=== PATIENT | male | born 1980 | race Caucasian/White ===

== ENCOUNTER 2019-01-01 23:05 | Emergency (ER) | payer MEDICAID, OTHER ==
[~2019-01-01] VITALS: Ht 175.3 cm; Wt 99.8 kg
[2019-01-02] MEDS ORDERED: ONDANSETRON 4 MG TAB.RAPDIS ONE (00:18)
--- NOTE | 2019-01-02 00:22 | NUR ---
BIBSELF FROM HOME. TO BED 3. AAOX4. PRESENTED EVEN AND UNLBAORED BREATHING. AMBULATORY. C/O FLU LIKE SYMPTOMS X 1 WEEK. PT REPORT COUGHING WITH PHLEGM, SORE THROAT, NASAL CONGESTION, CHEST CONGESTION AND NAUSUEOUS. MD AT BEDSIDE. ORDERS RECEIVED, NOTED AND CARRIED OUT.
--- NOTE | 2019-01-02 00:27 | NUR ---
XRAY DONE AT BEDSIDE
[2019-01-02] MEDS ORDERED: ONDANSETRON 4 MG TAB.RAPDIS SL ONE (00:30)
--- NOTE | 2019-01-02 01:53 | NUR ---
Patient discharged to home in stable condition. Written and verbal after care instructions given. Patient verbalizes understanding of instruction. Pt ambulatory with a steady gait
[2019-01-02 01:54] VITALS: BP 155/82
[2019-01-02] MEDS ORDERED: AZITHROMYCIN 250 MG TABLET PO ONE (02:00)
== END 2019-01-02 01:55 | disposition home or self-care (01) ==
LOC: ER 23:12
DX: J18.9 Pneumonia, unspecified organism (principal); I10 Essential (primary) hypertension; Z88.1 Allergy status to other antibiotic agents; Z88.0 Allergy status to penicillin; Z88.8 Allergy status to other drugs, medicaments and biological substances
CPT/HCPCS: 71046; 99283; Q0162